=== PATIENT | male | born 1980 | race Caucasian/White ===

== ENCOUNTER 2022-02-20 20:54 | Inpatient (IN) | payer BC, SELFPAY ==
--- NOTE | ~2022-02-20 | CT_ITS ---
EXAMINATION: CT ABDOMEN AND PELVIS WITH CONTRAST CLINICAL INFORMATION: Abdominal pain COMPARISON: None TECHNIQUE: Multidetector volumetric images were obtained from the superior aspect of the liver through the pubic symphysis following administration 85 mL of Omnipaque 350 intravenous contrast. Sagittal and coronal reformatted images were obtained on the technologist's workstation. Oral contrast: No This CT examination was performed using dose optimization techniques as appropriate, variously including the following: *Automated exposure control *Adjustment of mA and/or kV according to patient size (this includes techniques or standardized protocols for targeted exams where dose is matched to indication/reason for exam; i.e. extremities or head) *Use of iterative reconstruction technique DLP: 426 mGy-cm FINDINGS: LUNG BASES: Mild dependent atelectasis bilaterally. LIVER, GALLBLADDER, AND BILIARY TREE: The liver is normal in size, shape, and attenuation. No focal hepatic lesion or significant biliary ductal dilatation is present. Status post cholecystectomy. PANCREAS: Unremarkable. SPLEEN: Unremarkable. ADRENAL GLANDS: Unremarkable. KIDNEYS AND URETERS: The kidneys are normal in size, shape, and attenuation. No hydronephrosis, hydroureter, or calculi seen. No perinephric stranding. BLADDER: Mildly distended with a thick-walled appearance, likely secondary to adjacent colonic inflammation described below. GASTROINTESTINAL TRACT: No evidence of bowel obstruction. There is a short segment of wall thickening and surrounding inflammation in the proximal to mid sigmoid colon in the setting of diverticula, most suspicious for diverticulitis. Small amount of dependent pelvic free fluid is present. No discrete abscess or free air identified. Appendix appears mildly dilated in the right lower quadrant, though no surrounding inflammatory change is seen to strongly suggest appendicitis. ABDOMINAL WALL: No significant hernia is appreciated. LYMPH NODES: Normal. VASCULAR: Unremarkable. PELVIC VISCERA: Unremarkable. OSSEOUS STRUCTURES: Unremarkable. CT/CT abdomen pelvis w IV con IMPRESSION: 1. Diverticulitis of the proximal to mid sigmoid colon. Small amount of dependent pelvic free fluid. No discrete abscess identified. Correlation with recent or followup colonoscopy is advised to exclude an underlying mass lesion. 2. Thick-walled appearance of the urinary bladder, likely secondary to adjacent colonic inflammation. 3. Mildly dilated appendix, though without surrounding inflammatory change to strongly suggest appendicitis.
[2022-02-20 21:19] VITALS: BP 106/75; PULSE 106; RESP 16; TEMP 37.4; O2SAT 97; BMI 22.4
[2022-02-20 21:31] LABS: MANUAL DIFF FLAG NO
[2022-02-20 21:33] LABS: Basophils Absolute Auto 0.1 X10*3/uL (0.0-0.2); Basophils Percent Auto 0.6 % (0-2); Eosinophils Absolute Auto 0.2 X10*3/uL (0.0-0.4); Hematocrit 41.2 % (42.0-52.0); Hemoglobin 13.8 g/dl (14.0-18.0); Imm Gran Abs Auto 0.05 X10*3/uL (0.00-0.03); Imm Gran Pct Auto 0.3 % (0.0-0.4); Lymphocytes Absolute Auto 2.5 X10*3/uL (1.2-4.9); Lymphocytes Percent Auto 15.6 % (20-40); Mean Corpuscular HGB Conc 33.5 g/dl (31.0-36.0); Mean Corpuscular Hemoglobin 31.7 pg (27.0-33.0); Mean Corpuscular Volume 94.7 fL (80.0-98.0); Monocytes Absolute Auto 1.5 X10*3/uL (0.1-1.2); Neutrophils Percent Auto 73.5 % (45-73); Platelet Count 349 X10*3/uL (160-400); Red Blood Count 4.35 X10*6/uL (4.60-5.80); Red Cell Distribution Width 13.6 % (11.0-16.0); White Blood Count 16.2 X10*3/uL (4.8-10.8)
[2022-02-20 21:46] LABS: Anion Gap 15 (12-20); Blood Urea Nitrogen 13 mg/dL (9-16); Calcium 9.7 mg/dL (8.4-10.2); Carbon Dioxide 23 mmol/L (22-29); Chloride 106 mmol/L (96-108); Creatinine Clr Calc Pharmacy 122.9; Estimated Glomerular Filt Rate > 60; Glucose Random 105 mg/dL (60-115); Sodium 140 mmol/L (135-145)
[2022-02-21] VITALS (9 sets, daily range): BP systolic 102–141; BP diastolic 61–85; PULSE 58–86; RESP 14–20; TEMP 36–36.8; O2SAT 97–99; BMI 21.4
--- NOTE | 2022-02-21 00:45 | ED.ABDPAIN ---
HPI - Abdominal Pain General Chief Complaint: Abdominal Pain Stated Complaint: Abd pain Time Seen by Provider: 02/21/22 00:29 Source: patient Mode of arrival: ambulatory Limitations: no limitations History of Present Illness HPI narrative: 41-year-old male with history of diverticulitis presents to the emergency department with complaints lower abd pain w/ radiation to bilateral flank pain since 19:00 tonight. Patient reports the pain came on suddenly, comes and goes in waves. Patient reports this pain feels similar to a diverticulitis flare however normally the pain is localized to the left lower quadrant only. HX of cholecystectomy. No history of bowel obstruction. Patient still has his appendix. Patient tolerating p.o. without difficulty, reports anorexia however.. Patient rates his current pain as a 9/10 and has not taken anything for his pain tonight. Patient reports subjective fevers & chills. Denies chest pain, shortness of breath, headaches, dizziness, nausea, vomiting, diarrhea, constipation, weakness, changes in bowel habits, urinary symptoms. Related Data Allergies Allergy/AdvReac Type Severity Reaction Status Date / Time Unable to Assess Allergy Unverified 02/21/22 00:29 Review of Systems Review of Systems Constitutional : No Weight loss, No Fever, No Chills, No Fatigue, No Malaise Eyes: No Eye Pain, No Swelling, No Redness Cardiovascular : No Chest Pain, No SOB, No Dyspnea on Exertion, No Orthopnea, No Edema, No Palpitations Respiratory : No Cough, No Sputum, No Wheezing Gastrointestinal : No Nausea, No Vomiting, No Diarrhea, No Constipation, + abdominal Pain, No Hematochezia, No Melena Genitourinary : No Dysuria, No Urinary Frequency, No Hematuria, Musculoskeletal : No joint pain, No Myalgias, No Joint Swelling Skin : No Skin Lesions, No rash Neuro : No Weakness, No Numbness, No Dizziness, No Headache Psych : No Anxiety/Panic, No Depression All other systems reviewed and are negative Yes all other systems are reviewed and are negative [facility] Past Medical History Attestation statement: The following information was validated with the patient. Source: old records reviewed Social History Social History Advance Directives: No Advance Directives Information Provided: Yes Physical Exam ED Vital Signs: Vital Signs - 24 hr 02/20/22 21:19 02/21/22 01:07 02/21/22 01:30 Temperature 99.4 F 98.3 F Pulse Rate 106 H 86 Respiratory Rate 16 18 16 Blood Pressure 106/75 141/85 H Pulse Oximetry 97 98 Oxygen Delivery Method Room Air Room Air BMI result Body Mass Index 22.4 vss Appearance: Alert.? Oriented X3.? No acute distress.? Head: Normocephalic, atraumatic, no step-offs or deformities Eyes: Pupils equal, round and reactive to light.? Neck: Normal inspection.? Neck supple.? CVS: Normal heart rate and rhythm.? Pulses normal.? Respiratory: No respiratory distress.? Breath sounds normal.? Abdomen: Soft, non distended, diffusely tender across lower abdomen R>L. Skin: Skin warm and dry.? Normal skin color.? Normal skin turgor.? Extremities: No lower extremity edema.? No calf ttp. 5/5 strength to bilateral upper and lower extremities Back: No midline tenderness, no C-spine tenderness, full range of motion, No CVA tenderness bilaterally Neuro: Oriented X 3.? No motor deficit.? No sensory deficit. CN 2-12 intact Course Reevaluation(s) Reevaluation #1: Patient noted to have leukocytosis of 16.2, also noted to have a normocytic anemia, chemistry with no acute electrolyte abnormalities requiring intervention. Transaminases normal. Lactic acid within normal limits. Urine clean. Although patient's white blood cell count is elevated will wait to initiate antibiotics until source can be identified. Pending lipase and CT of the abdomen and pelvis. To note upon re-evaluation of patient he tells me he is feeling better even before pain meds were administered. Time: 01:42 Reevaluation #2: Now complaining of increasing pain. Reviewed CT scan results which are showing diverticulitis as well as an inflamed appendix. Patient's physical examination concerning for both. Will reach out to surgery for input. At this time metronidazole, levofloxacin have been ordered. Time: 02:50 Reevaluation #3: Dr. Hammer general surgeon will admit patient to hospital for further evaluation and treatment if necessary. At this time I told patient to not eat or drink. Will be NPO. Will continue to monitor. I did discuss plan with patient. Answered all questions. At this time I feel comfortable. Time: 02:58 MDM - Abdominal Pain MDM Narrative Medical decision making narrative: [id number] 41-year-old male presents the emergency department complaining of bilateral flank pain since 19:00 tonight. Physical exam reveals normal rate and rhythm, lungs clear to auscultation bilaterally. Abdomen soft, nondistended, diffusely tender across lower abdomenR>L No CVA tenderness bilaterally. Plan at this time is to obtain basic labs, imaging, urine sample. Unlikely acute abdomen, nephrolithiasis, pancreatitis, bowel obstruction however will rule out. Suspected diverticulitis, appendicitis. Will rule out pylo. No radiation and testicles, unlikely testicular torsion. Medical Records Attestation: I reviewed the patient's medical records. Lab Data Attestation: I reviewed the patient's lab results. Result diagrams: 02/20/22 21:02/20/22: Labs: Lab Results 02/20/22 02/20/22 02/21/22 Range/Units : 21: 00:58 WBC 16.2 H (4.8-10.8) X10*3/uL RBC 4.35 L (4.60-5.80) X10*6/uL Hgb 13.8 L (14.0-18.0) g/dl Hct 41.2 L (42.0-52.0) % MCV 94.7 (80.0-98.0) fL MCH 31.7 (27.0-33.0) pg MCHC 33.5 (31.0-36.0) g/dl RDW 13.6 (11.0-16.0) % Plt Count 349 (160-400) X10*3/uL MPV 9.0 L (9.4-12.4) fL Immature Gran % (Auto) 0.3 (0.0-0.4) % Neut % (Auto) 73.5 H (45-73) % Lymph % (Auto) 15.6 L (20-40) % [place] % (Auto) 9.0 (2-11) % Eos % (Auto) 1.0 (0-4) % Baso % (Auto) 0.6 (0-2) % Lymph # (Auto) 2.5 (1.2-4.9) X10*3/uL [place] # (Auto) 1.5 H (0.1-1.2) X10*3/uL Eos # (Auto) 0.2 (0.0-0.4) X10*3/uL Baso # (Auto) 0.1 (0.0-0.2) X10*3/uL Abs Immat Gran (auto) 0.05 H (0.00-0.03) X10*3/uL Absolute Neuts (auto) 12.0 H (2.0-8.3) x10*3/uL Absolute Nucleated RBC 0.000 (0.0-0.012) X10*3/uL Nucleated RBC % (auto) 0.0 (0.0-0.2) /100WBC Sodium 140 (135-145) mmol/L Potassium 4.0 (3.3-5.1) mmol/L Chloride 106 (96-108) mmol/L Carbon Dioxide 23 (22-29) mmol/L Anion Gap 15 (12-20) BUN 13 (9-16) mg/dL Creatinine 0.82 (0.5-1.4) mg/dL Estim Creat Clear Calc 122.9 Estimated GFR > 60 Random Glucose 105 (60-115) mg/dL Lactic Acid 0.9 (0.5-2.0) mmol/L Calcium 9.7 (8.4-10.2) mg/dL Total Bilirubin 0.2 (0.0-1.0) mg/dL Direct Bilirubin 0.2 (0.0-0.5) mg/dL AST 15 (5-37) U/L ALT 18 (0-40) U/L Alkaline Phosphatase 78 (39-117) U/L Total Protein 7.1 (6.5-8.0) g/dL Albumin 4.2 (3.5-5.0) g/dL Lipase 35 (8-78) U/L Urine Color Urine Appearance Urine pH (5.0-9.0) Ur Specific [place] (1.005-1.025) Urine Protein (Neg-Trace) mg/dL Urine Glucose (UA) (Negative) mg/dL Urine Ketones (Negative) mg/dL Urine Blood (Negative) Urine Nitrite (Negative) Ur Leukocyte Esterase (Negative) 02/21/22 Range/Units 00:58 WBC (4.8-10.8) X10*3/uL RBC (4.60-5.80) X10*6/uL Hgb (14.0-18.0) g/dl Hct (42.0-52.0) % MCV (80.0-98.0) fL MCH (27.0-33.0) pg MCHC (31.0-36.0) g/dl RDW (11.0-16.0) % Plt Count (160-400) X10*3/uL MPV (9.4-12.4) fL Immature Gran % (Auto) (0.0-0.4) % Neut % (Auto) (45-73) % Lymph % (Auto) (20-40) % [place] % (Auto) (2-11) % Eos % (Auto) (0-4) % Baso % (Auto) (0-2) % Lymph # (Auto) (1.2-4.9) X10*3/uL [place] # (Auto) (0.1-1.2) X10*3/uL Eos # (Auto) (0.0-0.4) X10*3/uL Baso # (Auto) (0.0-0.2) X10*3/uL Abs Immat Gran (auto) (0.00-0.03) X10*3/uL Absolute Neuts (auto) (2.0-8.3) x10*3/uL Absolute Nucleated RBC (0.0-0.012) X10*3/uL Nucleated RBC % (auto) (0.0-0.2) /100WBC Sodium (135-145) mmol/L Potassium (3.3-5.1) mmol/L Chloride (96-108) mmol/L Carbon Dioxide (22-29) mmol/L Anion Gap (12-20) BUN (9-16) mg/dL Creatinine (0.5-1.4) mg/dL Estim Creat Clear Calc Estimated GFR Random Glucose (60-115) mg/dL Lactic Acid (0.5-2.0) mmol/L Calcium (8.4-10.2) mg/dL Total Bilirubin (0.0-1.0) mg/dL Direct Bilirubin (0.0-0.5) mg/dL AST (5-37) U/L ALT (0-40) U/L Alkaline Phosphatase (39-117) U/L Total Protein (6.5-8.0) g/dL Albumin (3.5-5.0) g/dL Lipase (8-78) U/L Urine Color Yellow Urine Appearance Clear Urine pH 6.5 (5.0-9.0) Ur Specific [place] 1.025 (1.005-1.025) Urine Protein Negative (Neg-Trace) mg/dL Urine Glucose (UA) Negative (Negative) mg/dL Urine Ketones Trace (Negative) mg/dL Urine Blood Negative (Negative) Urine Nitrite Negative (Negative) Ur Leukocyte Esterase Negative (Negative) Critical Care Time Critical Care Time Critical Care Time: Yes Total Critical Care Time: 35 Attestation: I attest to this time spent taking care of the patient, obtaining history, physical, reviewing labs, imaging, speaking to my attending, speaking to specialist. Discharge Plan Discharge Clinical Impression: Abdominal pain, Diverticulitis Patient Disposition: Admitted As Inpatient Instructions: Abdominal Pain (ED) Additional Instructions: Take your medications as prescribed. If you were prescribed antibiotics today, it is important that you take your medication to their entirety, do not skip any doses, do not finish them early. Follow-up with your primary care provider this week. Follow-up with the GI team for further evaluation and treatment if symptoms persist. Return to the emergency department with new or worsening symptoms. Such as fevers, chills, chest pain, shortness of breath, nausea, vomiting, dizziness, headache, vision changes, lethargy In case of emergency call 911 You can take ibuprofen every 6 hours, Tylenol every 4 as needed for pain or discomfort. Referrals: [facility] [Provider Group] - 1 week Physician,Unknown J [Primary Care Provider] - 2 days Stand Alone Forms: Work/School Release
[2022-02-21 01:06] LABS: Alanine Aminotransferase 18 U/L (0-40); Albumin Level 4.2 g/dL (3.5-5.0); Alkaline Phosphatase 78 U/L (39-117); Aspartate Amino Transferase 15 U/L (5-37); Bilirubin Direct 0.2 mg/dL (0.0-0.5); Bilirubin Total 0.2 mg/dL (0.0-1.0); Total Protein 7.1 g/dL (6.5-8.0)
[2022-02-21 01:10] LABS: Appearance Urine Clear; Color Urine Yellow; Glucose Urine UA Negative (Negative); Leukocyte Esterase Urine Negative (Negative); Nitrite Urine Negative (Negative); PH 6.5 (5.0-9.0); Specific Gravity - Urine 1.025 (1.005-1.025); Urine Blood Negative (Negative); Urine Ketones Trace mg/dL (Negative); Urine Protein Negative (Neg-Trace)
[2022-02-21 01:16] LABS: Lactic Acid 0.9 mmol/L (0.5-2.0)
[2022-02-21] MEDS: Morphine Sulfate 4 MG/ML CARTRIDGE IVPUSH (01:30)
[2022-02-21] MEDS: Ketorolac Tromethamine 15 MG/ML VIAL 30 MG IVPUSH (01:30)
[2022-02-21 02:00] LABS: Lipase 35 U/L (8-78)
[2022-02-21] MEDS: iohexoL 350 MG/ML 100 ML INFUS..BTL 85 ML IV (02:07)
[2022-02-21] MEDS: metroNIDAZOLE/NS 500 MG/100 ML PIGGYBACK 100 MG IV (03:38)
--- NOTE | 2022-02-21 03:55 | PC.NURSE ---
Pt antibiotic are still running. will continue to monitor.
[2022-02-21 04:10] LABS: COVID-19 Test Negative (Negative)
[2022-02-21 04:14] LABS: Anion Gap 15 (12-20); Blood Urea Nitrogen 13 mg/dL (9-16); Calcium 9.4 mg/dL (8.4-10.2); Carbon Dioxide 25 mmol/L (22-29); Chloride 103 mmol/L (96-108); Creatinine Clr Calc Pharmacy 122.9; Estimated Glomerular Filt Rate > 60; Glucose Random 111 mg/dL (60-115); Potassium 4.5 mmol/L (3.3-5.1); Sodium 138 mmol/L (135-145)
[2022-02-21] MEDS: ondansetron HCL 4 MG/2 ML VIAL IVPUSH (04:38)
[2022-02-21] MEDS: HYDROmorphone HCl 0.5 MG/0.5 ML SYRINGE IVPUSH ×2 (04:38→07:41)
[2022-02-21] MEDS: levoFLOXacin/D5W 750 MG/150 ML PIGGYBACK 100 MG IV (04:50)
[2022-02-21] MEDS: Dextrose 5 % and Lactated Ring 1,000 ML 125 ML IVCONT ×3 (05:08→21:27)
[2022-02-21] MEDS: Piperacillin Sodium/Tazobactam 3.375 GM in 0.9 % Sodium Chloride 50 ML IV ×4 (06:20→23:14)
--- NOTE | 2022-02-21 07:52 | PHA.MEDREC ---
Pharmacy Consult ? Medication Reconciliation Pharmacy has completed the medication reconciliation. SPOKE WITH PATIENT IN THE ED
--- NOTE | 2022-02-21 09:29 | PM.HPGS ---
History of Present Illness History of Present Illness Date of Service: 02/21/22 <Ericka Aburto PA-C - Last Filed: 02/21/22 10:13> 02/21/22 <Agustin Hammer MD - Last Filed: 02/21/22 13:07> Chief complaint: sigmoid diverticulitis <Ericka Aburto PA-C - Last Filed: 02/21/22 10:13> Narrative: Zane Santoyo is a 41 year old male who presented to the ED with complaints of abdominal pain. He reports he developed the pain last evening around 5pm. It started in the LLQ but has spread to the right site as well. It was first intermittent and waxed and waned but became sharp and stabbing in nature. It worsened in severity and he therefore sought evaluation in the ED. The pain was associated with subjective fevers. He denies nausea or vomiting. He reports diarrhea which is chronic. He reports he had his first episode of diverticulitis over year ago which he was admitted for and treated with IV abx. He also reports an episode about a month ago which was treated with PO antibiotics. The pain resolved. He also underwent a colonoscopy 2 weeks ago which only showed internal hemorrhoids. In the ED, work up included a CT scan of the abd/pelvis which showed wall thickening and surrounding inflammation of the proximal to mid sigmoid colon. He also had a leukocytosis of 16.2. <Ericka Aburto PA-C - Last Filed: 02/21/22 10:13> Review of Systems Constitutional: Constitutional: Denies chills, Reports fever(s), Denies malaise and Denies weight loss <Ericka Aburto PA-C - Last Filed: 02/21/22 10:13> ENT: Denies dizziness <BERNADETTE Morales Last Filed: 02/21/22 10:13> Cardiovascular: Cardiovascular: Denies chest pain, Denies palpitations and Denies dyspnea <BERNADETTE Morales Last Filed: 02/21/22 10:13> Respiratory: Respiratory: Denies cough and Denies dyspnea <Ericka Aburto PA-C - Last Filed: 02/21/22 10:13> Gastrointestinal: Gastrointestinal: Reports as per HPI, Denies change in bowel habits, Denies constipation, Denies nausea and Denies vomiting <Ericka Aburto PA-C - Last Filed: 02/21/22 10:13> Genitourinary: Genitourinary: Denies hematuria and Denies dysuria <Ericka Aburto PA-C - Last Filed: 02/21/22 10:13> Integumentary/Breasts: Skin/Breast: Denies rash <Ericka Aburto PA-C - Last Filed: 02/21/22 10:13> Neurologic: Denies dizziness <Ericka Aburto PA-C - Last Filed: 02/21/22 10:13> Endocrine: Endocrine: Denies palpitations <Ericka Aburto PA-C - Last Filed: 02/21/22 10:13> [facility] Surgical History Surgical History: Surgical History (Updated 02/21/22 @ 09:32 by Ericka Aburto PA-C) Hx laparoscopic cholecystectomy <Ericka Aburto PA-C - Last Filed: 02/21/22 10:13> Social History Social History: Social History Advance Directives: No Advance Directives Information Provided: Yes <BERNADETTE Morales Last Filed: 02/21/22 10:13> Meds Allergies/Adverse reactions: Allergies Allergy/AdvReac Type Severity Reaction Status Date / Time No Known Allergies Allergy Verified 02/21/22 07:42 <BERNADETTE Morales Last Filed: 02/21/22 10:13> Active Medications: Current Medications Acetaminophen (Acetaminophen 325 Mg Tablet) 650 mg PO QID PRN PRN Reason: headache, temp > 101 Hydromorphone HCl (Hydromorphone Hcl 0.5 Mg/0.5 Ml Syringe) 0.5 mg IVPUSH Q3H PRN; Protocol PRN Reason: Pain, Severe (Pain Scale 7-10) Last Admin: 02/21/22 07:41 Dose: 0.5 mg Dextrose/Lactated Ringer's (D5lr) 1,000 mls @ 125 mls/hr IVCONT .Q8H AILYN Last Admin: 02/21/22 05:08 Dose: 125 mls/hr Piperacillin Sod/Tazobactam (Sod 3.375 gm/ Sodium Chloride) 50 mls @ 100 mls/hr IV Q6H AILYN Ondansetron HCl (Ondansetron Hcl 4 Mg/2 Ml Vial) 4 mg IVPUSH QID PRN PRN Reason: Nausea Last Admin: 02/21/22 04:38 Dose: 4 mg Oxycodone HCl (Oxycodone Hcl Immed Release 5 Mg Tablet) 5 mg PO Q6H PRN PRN Reason: Pain, Severe (Pain Scale 7-10) Pharmacy Consult (Consult Rx Perform Med Rec) 1 each MISCELLANE ONCE PRN PRN Reason: Consult order Sodium Chloride (0.9 % Sodium Chloride Flush 3 Ml Syringe) 3 ml IVFLUSH QSHIFT AILYN Last Admin: 02/21/22 06:55 Dose: Not Given Zolpidem Tartrate (Zolpidem Tartrate 5 Mg Tablet) 5 mg PO BEDTIME PRN PRN Reason: Insomnia <BERNADETTE Morales Last Filed: 02/21/22 10:13> Home medications: Home Medications Medication Instructions Recorded Confirmed Last Taken Type inulin 2 gram chewable tablet 4 g PO DAILY 02/21/22 02/21/22 02/20/22 History (Fiber Gummies) <BERNADETTE Morales Last Filed: 02/21/22 10:13> Physical Exam Vital Signs: Vital Signs: Last Vital Signs Temp 97.8 F 02/21/22 03:42 Pulse 69 02/21/22 07:40 Resp 16 02/21/22 07:40 BP 116/72 02/21/22 07:40 Pulse Ox 97 02/21/22 03:42 O2 Del Method 02/21/22 03:42 BMI result Body Mass Index 22.4 <BERNADETTE Morales Last Filed: 02/21/22 10:13> Const: General: comfortable, no acute distress and alert <BERNADETTE Morales Last Filed: 02/21/22 10:13> Orientation/consciousness: patient oriented x3 <BERNADETTE Morales Last Filed: 02/21/22 10:13> Resp: Effort & Inspection: normal respiratory effort <Ericka Aburto PA-C - Last Filed: 02/21/22 10:13> Cardio: Rate: regular rate <Ericka Aliciadeau BERNADETTE Elizabeth Last Filed: 02/21/22 10:13> GI: Inspection: No distended <Ericka AliciadeauJULIUSAmando Elizabeth Last Filed: 02/21/22 10:13> Palpation (GI): Soft to palpation, Tenderness to palpation present (GI) in the LLQ (mild); with no rebound tenderness, no guarding and not rigid <Ericka Aliciadeau BERNADETTE Elizabeth Last Filed: 02/21/22 10:13> Percussion: Yes normal to percussion <Ericka AlmazanJULIUS justiceAmando Elizabeth Last Filed: 02/21/22 10:13> Skin: General skin exam: no rashes or lesions noted <Ericka Almazanreshma BERNADETTE Elizabeth Last Filed: 02/21/22 10:13> Neuro: General: patient oriented x3 and moves all extremities <Ericka AlmazanJULIUS justiceAmando Elizabeth Last Filed: 02/21/22 10:13> Extrem: General: Yes no clubbing, cyanosis or edema <Ericka Almazanreshma BERNADETTE Elizabeth Last Filed: 02/21/22 10:13> Results Results Labs: Short CBC 02/20/22 Range/Units 21:27 WBC 16.2 H (4.8-10.8) X10*3/uL Hgb 13.8 L (14.0-18.0) g/dl Hct 41.2 L (42.0-52.0) % Plt Count 349 (160-400) X10*3/uL BMP 02/20/22 02/21/22 21:27 03:44 Sodium 140 138 Potassium 4.0 4.5 Chloride 106 103 Carbon Dioxide 23 25 BUN 13 13 Creatinine 0.82 0.82 Calcium 9.7 9.4 Liver Function 02/20/22 Range/Units 21:27 Total Bilirubin 0.2 (0.0-1.0) mg/dL Direct Bilirubin 0.2 (0.0-0.5) mg/dL AST 15 (5-37) U/L ALT 18 (0-40) U/L Alkaline Phosphatase 78 (39-117) U/L Albumin 4.2 (3.5-5.0) g/dL Urine 02/21/22 Range/Units 00:58 Urine Color Yellow Urine Appearance Clear Urine pH 6.5 (5.0-9.0) Ur Specific [place] 1.025 (1.005-1.025) Urine Protein Negative (Neg-Trace) mg/dL Urine Glucose (UA) Negative (Negative) mg/dL <Ericka Aburto PA-C - Last Filed: 02/21/22 10:13> Additional studies: CT scan abd/pelvis- No evidence of bowel obstruction. There is a short segment of wall thickening and surrounding inflammation in the proximal to mid sigmoid colon in the setting of diverticula, most suspicious for diverticulitis. Small amount of dependent pelvic free fluid is present. No discrete abscess or free air identified. Appendix appears mildly dilated in the right lower quadrant, though no surrounding inflammatory change is seen to strongly suggest appendicitis. <BERNADETTE Morales Last Filed: 02/21/22 10:13> Assessment and Plan (1) Diverticulitis: Status: Acute <Ericka Aburto PA-C - Last Filed: 02/21/22 10:13> 41 year old male who presented with LLQ abd pain with a leukocytosis and CT scan showing wall thickening of the sigmoid with surrounding inflammatory changes without abscess or free air, consistent with diverticulitis. The appendix is slightly dilated on CT scan but there are no surrounding inflammatory changes and he is nontender in the RLQ. He was admitted to the surgical service for further treatment. He is non toxic appearing with a relatively benign abdomen without any peritoneal signs. Will continue IV abx and bowel rest for now. Will repeat CBC in am. Will advance diet if leukocytosis and abdominal pain improved. Patient expressed understanding and agrees with the plan. <BERNADETTE Morales Last Filed: 02/21/22 10:13> 41 year old male who presented with LLQ abd pain with a leukocytosis and CT scan showing wall thickening of the sigmoid with surrounding inflammatory changes without abscess or free air, consistent with diverticulitis. The appendix is slightly dilated on CT scan but there are no surrounding inflammatory changes and he is nontender in the RLQ. He was admitted to the surgical service for further treatment. He is non toxic appearing with a relatively benign abdomen without any peritoneal signs. Will continue IV abx and bowel rest for now. Will repeat CBC in am. Will advance diet if leukocytosis and abdominal pain improved. Patient expressed understanding and agrees with the plan. 41-year-old male patient with a prior history of diverticulitis several months ago, status post colonoscopy which was normal except for diverticulum, now with recurrent episode of diverticulitis uncomplicated. Patient is found to have a mildly elevated WBC and CT revealing thickened sigmoid colon with diverticula without abscess. On examination he is tender mainly in the left lower quadrant without rebound, guarding or rigidity. Findings are consistent with acute sigmoid diverticulitis. Agree with the above assessment and plan. Will continue IV antibiotics and recheck CBC in a.m.. <Agustin Hammer MD - Last Filed: 02/21/22 13:07> Quality Stroke Does the patient have a stroke diagnosis?: No <Ericka Aburto PA-C - Last Filed: 02/21/22 10:13> VTE Prior VTE?: No <Ericka Aburto PA-C - Last Filed: 02/21/22 10:13> VTE Risk Level:: Surgical - low <Ericka Aburto PA-C - Last Filed: 02/21/22 10:13> VTE Device Contraindication: N/A - Device Ordered <Ericka Aburto PA-C - Last Filed: 02/21/22 10:13> VTE Drug Contraindication: Treatment Not Indicated <Ericka Aburto PA-C - Last Filed: 02/21/22 10:13> Procedures Date of Service Date of Service: 02/21/22 <Ericka Aburto PA-C - Last Filed: 02/21/22 10:13>
--- NOTE | 2022-02-21 11:38 | MHC.CM.PN ---
Attempted to meet with patient in regards to discharge planning. Patient currently sleeping. No family present. Will attempt to meet again. Continue to monitor for d/c needs.
[2022-02-21] MEDS: oxyCODONE HCl Immed Release 5 MG TABLET PO ×2 (12:50→21:35)
--- NOTE | 2022-02-21 20:08 | PC.NURSE ---
Pt. has a bed on [facility], bed 368-1. RN was unavailable, but will call back.
[2022-02-21] MEDS: 0.9 % Sodium Chloride Flush 3 ML SYRINGE IVFLUSH (23:14)
[2022-02-22 03:19] VITALS: BP 122/70; PULSE 84; RESP 14; TEMP 36; O2SAT 98
[2022-02-22] MEDS: Piperacillin Sodium/Tazobactam 3.375 GM in 0.9 % Sodium Chloride 50 ML IV ×2 (05:09→11:30)
[2022-02-22] MEDS: Dextrose 5 % and Lactated Ring 1,000 ML 125 ML IVCONT ×2 (05:13→11:30)
[2022-02-22 07:00] LABS: MANUAL DIFF FLAG NO
[2022-02-22 07:04] LABS: Basophils Absolute Auto 0.1 X10*3/uL (0.0-0.2); Eosinophils Absolute Auto 0.3 X10*3/uL (0.0-0.4); Eosinophils Percent Auto 3.9 % (0-4); Hematocrit 37.6 % (42.0-52.0); Hemoglobin 12.4 g/dl (14.0-18.0); Imm Gran Abs Auto 0.02 X10*3/uL (0.00-0.03); Imm Gran Pct Auto 0.3 % (0.0-0.4); Lymphocytes Absolute Auto 2.1 X10*3/uL (1.2-4.9); Mean Corpuscular Hemoglobin 32.1 pg (27.0-33.0); Mean Corpuscular Volume 97.4 fL (80.0-98.0); Mean Platelet Volume 9.7 fL (9.4-12.4); Monocytes Absolute Auto 1.1 X10*3/uL (0.1-1.2); Monocytes Percent Auto 13.2 % (2-11); Neutrophils Absolute Auto 4.4 x10*3/uL (2.0-8.3); Neutrophils Percent Auto 55.6 % (45-73); Platelet Count 315 X10*3/uL (160-400); Red Blood Count 3.86 X10*6/uL (4.60-5.80); White Blood Count 7.9 X10*3/uL (4.8-10.8)
[2022-02-22 07:28] VITALS: BP 118/70; PULSE 65; RESP 15; TEMP 36.6; O2SAT 98
--- NOTE | 2022-02-22 08:03 | P.PNGS_ITS ---
Subjective Subjective Date of Service: 02/22/22 Interval history: Feels much better this morning. He denies any abdominal pain, nausea or vomiting. He is passing flatus and had a BM last night. Wants to eat food. Physical Exam Vital Signs: Vital Signs: Last Vital Signs Temp 97.8 F 02/22/22 07:28 Pulse 65 02/22/22 07:28 Resp 15 02/22/22 07:28 BP 118/70 02/22/22 07:28 Pulse Ox 98 02/22/22 07:28 O2 Del Method 02/22/22 07:28 BMI result Body Mass Index 21.4 Const: General: comfortable, no acute distress and alert Orientation/consciousness: patient oriented x3 Resp: Effort & Inspection: normal respiratory effort GI: Inspection: No distended Palpation (GI): Soft to palpation, Tenderness to palpation present (GI) (very mild LLQ to deep palpation) with no rebound tenderness, no guarding and not rigid Percussion: Yes normal to percussion Skin: General skin exam: no rashes or lesions noted Neuro: General: patient oriented x3 Extrem: General: Yes no clubbing, cyanosis or edema Objective Data Active Medications Acetaminophen (Acetaminophen 325 Mg Tablet) 650 mg PO QID PRN PRN Reason: headache, temp > 101 Hydromorphone HCl (Hydromorphone Hcl 0.5 Mg/0.5 Ml Syringe) 0.5 mg IVPUSH Q3H PRN; Protocol PRN Reason: Pain, Severe (Pain Scale 7-10) Last Admin: 02/21/22 07:41 Dose: 0.5 mg Documented By: YAMINI Dextrose/Lactated Ringer's (D5lr) 1,000 mls @ 125 mls/hr IVCONT .Q8H [facility] Last Admin: 02/22/22 05:13 Dose: 125 mls/hr Documented By: CATINA Piperacillin Sod/Tazobactam (Sod 3.375 gm/ Sodium Chloride) 50 mls @ 100 mls/hr IV Q6H [facility] Last Infusion: 02/22/22 05:44 Dose: 0 mls/hr Documented By: CATINA Ondansetron HCl (Ondansetron Hcl 4 Mg/2 Ml Vial) 4 mg IVPUSH QID PRN PRN Reason: Nausea Last Admin: 02/21/22 04:38 Dose: 4 mg Documented By: JORDAN Oxycodone HCl (Oxycodone Hcl Immed Release 5 Mg Tablet) 5 mg PO Q6H PRN PRN Reason: Pain, Severe (Pain Scale 7-10) Last Admin: 02/21/22 21:35 Dose: 5 mg Documented By: CATINA Pharmacy Consult (Consult Rx Perform Med Rec) 1 each MISCELLANE ONCE PRN PRN Reason: Consult order Sodium Chloride (0.9 % Sodium Chloride Flush 3 Ml Syringe) [facility] Last Admin: 02/21/22 23:14 Dose: 3 ml Documented By: CATINA Zolpidem Tartrate (Zolpidem Tartrate 5 Mg Tablet) 5 mg PO BEDTIME PRN PRN Reason: Insomnia Labs CBC & Chem 7: 02/22/22 06:05 02/21/22 03:44 Labs: Laboratory Results - last 24 hr 02/22/22 06:05 MCV 97.4 MCH 32.1 MCHC 33.0 RDW 14.0 Plt Count 315 MPV 9.7 Immature Gran % (Auto) 0.3 Neut % (Auto) 55.6 Lymph % (Auto) 26.0 Edwards % (Auto) 13.2 H Eos % (Auto) 3.9 Baso % (Auto) 1.0 Lymph # (Auto) 2.1 Edwards # (Auto) 1.1 Eos # (Auto) 0.3 Baso # (Auto) 0.1 Abs Immat Gran (auto) 0.02 Absolute Neuts (auto) 4.4 Absolute Nucleated RBC 0.000 Nucleated RBC % (auto) 0.0 Microbiology Microbiology Results: Microbiology 02/21/22 00:58 Blood Culture - Preliminary Blood - Venous Prelim: GPC Gram Stain only 02/21/22 00:58 Blood Culture - Preliminary Blood - Venous No growth after 24 hours. Procedures Date of Service Date of Service: 02/22/22 Progress Note: A&P Assessment and plan (1) Diverticulitis: Status: Acute Plan 41 year old male with recurrent diverticulitis, uncomplicated. He is doing well with resolution of his symptoms and good GI function. VSS. His abdomen is very benign. Will advance to low residue diet. If tolerating, stable for dc to home t andrew on course of PO Augmentin. Will need to f/u with Dr. Hammer in office in 2 weeks to discuss possible sigmoid resection. Time Spent With Patient Time: Total time spent is greater than 50% in coordination of care (as documented) at patient's floor/unit and/or counseling patient: Quality Stroke Does the patient have a stroke diagnosis?: No VTE Prior VTE?: No VTE Risk Level:: Surgical - low VTE Device Contraindication: N/A - Device Ordered VTE Drug Contraindication: Treatment Not Indicated
[2022-02-22] MEDS: Acetaminophen 325 MG TABLET 650 MG PO (08:26)
--- NOTE | 2022-02-22 10:21 | MHC.CM.PN ---
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
[2022-02-22 11:00] VITALS: BP 119/62; PULSE 68; RESP 16; TEMP 36.2; O2SAT 99
--- NOTE | 2022-02-26 10:14 | PM.DS ---
DS: Providers Provider Date of Service: 02/22/22 Date of admission: 02/21/22 03:01 Primary care physician: Jannet Physician Attending physician on admission: Agustin Hammer Attending physician on discharge: Agustin Hammer DS: Diagnosis Discharge Diagnosis (1) Diverticulitis: Status: Acute DS: Summary Hospital Course Hospital Course: BRIEF HPI: Zane Santoyo is a 41 year old male who presented to the ED with complaints of abdominal pain. He reports he developed the pain last evening around 5pm. It started in the LLQ but has spread to the right site as well. It was first intermittent and waxed and waned but became sharp and stabbing in nature. It worsened in severity and he therefore sought evaluation in the ED. The pain was associated with subjective fevers. He denies nausea or vomiting. He reports diarrhea which is chronic. He reports he had his first episode of diverticulitis over year ago which he was admitted for and treated with IV abx. He also reports an episode about a month ago which was treated with PO antibiotics. The pain resolved. He also underwent a colonoscopy 2 weeks ago which only showed internal hemorrhoids. In the ED, work up included a CT scan of the abd/pelvis which showed wall thickening and surrounding inflammation of the proximal to mid sigmoid colon. He also had a leukocytosis of 16.2. HOSPITAL COURSE: The patient was admitted to the surgical service for further treatment of the sigmoid diverticulitis. He was started on IV zosyn, IVF and kept NPO for bowel rest. He had an uncomplicated hospital course. The following day, he felt significantly improved with resolution of his abdominal pain. He felt hungry. He was passing flatus and moving his bowels. His abdominal exam was improved with only very mild LLQ tenderness. His diet was advanced to low residue. He was reassessed later that day and he was tolerating the solid diet without any symptoms. He felt well and ready for discharge. He was discharged to home on 02/22/22 in stable condition. He was discharged on a 10 day course of PO Augmentin. He is to follow up with Dr. Hammer in the office in 2 weeks to discuss possible elective sigmoid resection given his multiple recurrences. Status at Discharge Functional status at discharge: independent ambulation Overall status at discharge: patient is back to baseline Time Spent with Patient Time attestation: Total time spent providing and/or coordinating discharge services: Discharge coordination time: Greater than 30 minutes Quality: Safe Use of Opioids Does Pt have an Active Cancer Diagnosis on the Problem List?: No Quality: Stroke Does the patient have a stroke diagnosis?: No Physical Exam Vital Signs: Vital Signs: Last Vital Signs Temp 97.1 F 02/22/22 11:00 Pulse 68 02/22/22 11:00 Resp 16 02/22/22 11:00 BP 119/62 02/22/22 11:00 Pulse Ox 99 02/22/22 11:00 O2 Del Method 02/22/22 11:00 BMI result Body Mass Index 21.4 Const: General: comfortable, no acute distress and alert Orientation/consciousness: patient oriented x3 GI: Inspection: No distended Palpation (GI): Soft to palpation, nontender, no guarding and not rigid Neuro: General: patient oriented x3 Discharge Plan Discharge Anticipated Discharge Date/Time: 02/22/22 13:56 Patient Disposition: Home, Self-Care Discharge Diagnosis: acute sigmoid diverticulitis Referrals: [facility] [place] [facility] [Provider Group] - 1 week Agustin Hammer MD [Physician] - 2 Weeks Jannet Hawk [Primary Care Provider] - 2 days Discharge Medications: New amoxicillin-pot clavulanate [Augmentin] 500-125 mg tablet 1 tab PO BID Qty: 20 0RF Continued Fiber Gummies 2 gram Tablet,Chewable 4 g PO DAILY Discharge Orders: Discharge Order (Routine); Ordered 02/22/22 Ordered By: Ericka Aburto Diet: low residue diet Activity on Discharge: As tolerated Stand Alone Forms: Patient Portal Discharge page, Work/School Release Activity Restrictions/Additional Instructions: Call Your Doctor or Return to the ED if: ? ? -Your temperature exceeds 101.5? F? ? ? -You experience excessive pain or swelling ? ? -You have an unexpected reaction to medication ? ? -You experience continued vomiting/nausea Care Plan Goals: Resolution of diverticulitis Health Concerns: Diverticulitis Plan of Treatment: Nonoperative with bowel rest, IV abx and course of PO antibiotics at home F/u with Dr. Hammer in 2 weeks in office Assessment: Improved Patient Instructions: Abdominal Pain (ED) Discharge Date/Time: 02/22/22 15:50
== END 2022-02-22 15:50 | disposition home or self-care (01) | DRG 244 ==
LOC: HO.ED 02-21 02:59 → HO.EDOVER 02-21 03:19 → HO.S3 02-21 18:52
PROVIDERS: Physician Assistant; Admitting Provider Surgery; Emergency Provider Emergency Medicine Emergency Medical Services; PCP Physician Assistant; Visit Provider Surgery
DX: K57.32 Diverticulitis of large intestine without perforation or abscess without bleeding (principal); F17.290 Nicotine dependence, other tobacco product, uncomplicated; Z20.822 Contact with and (suspected) exposure to COVID-19; Z71.6 Tobacco abuse counseling
CPT/HCPCS: 36415; 74177; 80048; 80076; 81003; 83605; 83690; 85025; 87040; 87147; 87205; 87635; 99285; J1170; J1885; J1956; J2270; J2405; J2543; Q9967

== ENCOUNTER 2023-05-15 07:57 | Emergency (ER) | payer OTHER, SELFPAY ==
--- NOTE | ~2023-05-15 | CT_ITS ---
EXAMINATION: CT ABDOMEN AND PELVIS WITH CONTRAST CLINICAL INFORMATION: Pelvic pain and bulge COMPARISON: 02/21/2022 TECHNIQUE: Multidetector volumetric images were obtained from the superior aspect of the liver through the pubic symphysis following administration 85 mL of Omnipaque 350 intravenous contrast. Sagittal and coronal reformatted images were obtained on the technologist's workstation. Scanning performed with Valsalva maneuvers. Oral contrast: No This CT examination was performed using dose optimization techniques as appropriate, variously including the following: *Automated exposure control *Adjustment of mA and/or kV according to patient size (this includes techniques or standardized protocols for targeted exams where dose is matched to indication/reason for exam; i.e. extremities or head) *Use of iterative reconstruction technique DLP: 332 mGy-cm FINDINGS: LUNG BASES: Minor atelectasis at the lung bases. Dependent densities possibly due to hypoventilation. If there are pulmonary symptoms, a formal chest CT could be done. No pleural effusion. LIVER, GALLBLADDER, AND BILIARY TREE: The liver is normal in size, shape, and attenuation. No focal hepatic lesion or biliary ductal dilatation is present. The gallbladder is unremarkable with no evidence of radiopaque gallstones, gallbladder wall thickening, or obvious pericholecystic inflammatory changes. PANCREAS: Unremarkable. SPLEEN: Unremarkable. ADRENAL GLANDS: Unremarkable. KIDNEYS AND URETERS: The kidneys are normal in size, shape, and attenuation. No hydronephrosis, hydroureter, or calculi seen. No perinephric stranding. BLADDER: Unremarkable. GASTROINTESTINAL TRACT: Large stool burden within the rectum and colon but no bowel obstruction or right or left lower quadrant inflammatory change. Appendix normal. ABDOMINAL WALL: There are small fat-containing bilateral inguinal hernias. Bowel does not participate. The bladder appears to be extending towards the right hernia sac. The sigmoid appears to be extending towards the left inguinal sac however at the time of scanning, only fat is seen within the actual hernias. LYMPH NODES: Normal. VASCULAR: Unremarkable. PELVIC VISCERA: Unremarkable. OSSEOUS STRUCTURES: Unremarkable. CT/CT abdomen pelvis w IV con IMPRESSION: Bilateral fat-containing inguinal hernias. Fleischner guidelines were followed.
[2023-05-15 08:00] VITALS: BP 134/86; PULSE 99; RESP 18; TEMP 37.1; O2SAT 99; BMI 22.7
--- NOTE | 2023-05-15 08:13 | ED.GENADULT ---
HPI - General Adult General Chief complaint: General Medical Stated complaint: Referred by PCP - hernia ? Time Seen by Provider: 05/15/23 08:11 Source: patient Mode of arrival: ambulatory Limitations: no limitations History of Present Illness HPI narrative: 42 year old male hx of diverticulitis presenting w. L sided groin pain w/ painful lump that has been present for a few days worsening which prompted him to come in today. 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 Denies chest pain, shortness of breath, headaches, dizziness, nausea, vomiting, diarrhea, constipation, weakness, changes in bowel habits, urinary symptoms. Related Data Home Medications Medication Instructions Recorded Confirmed inulin 2 gram chewable tablet 4 g PO DAILY 02/21/22 02/28/22 (Fiber Gummies) Previous Rx's Medication Instructions Recorded amoxicillin 500 mg-potassium 1 tab PO BID #20 tabs 02/22/22 clavulanate 125 mg tablet (Augmentin) ketorolac 10 mg tablet 10 mg PO TID PRN pain 5 days #15 05/15/23 tabs Allergies Allergy/AdvReac Type Severity Reaction Status Date / Time No Known Allergies Allergy Verified 05/15/23 08:04 Review of Systems Review of Systems: Yes all other systems are reviewed and are negative PMFSH Past Medical History Attestation statement: The following information was validated with the patient. Source: old records reviewed and nursing notes reviewed Surgical History Hx laparoscopic cholecystectomy Family History Family History Mother Colon cancer Father Prostate CA Social History Social History Household Members: Family Housing: House Do you presently have visiting nurse or other home services: No Patient Tobacco Use Status: Current everyday Tobacco user Tobacco use type: Smokeless Tobacco Smoked in Last 30 Days: Yes e-Cigarette/Vaping Use: Currently Using Second Hand Smoke Exposure: No Use of substances other than those prescribed or required for medical reasons: No Substance Use Type: Marijuana Advance Directives: No Advance Directives Information Provided: Yes service: No Current occupational status: employed Physical Exam ED Vital Signs: Vital Signs - 24 hr 05/15/23 08:00 05/15/23 08:40 05/15/23 10:05 Temperature 98.7 F 97.9 F Pulse Rate 99 82 75 Respiratory Rate 18 16 16 Blood Pressure 134/86 146/91 H 119/84 Pulse Oximetry 99 98 97 Oxygen Delivery Method Room Air Room Air Room Air 05/15/23 10:33 Temperature Pulse Rate 78 Respiratory Rate 18 Blood Pressure 120/87 Pulse Oximetry 98 Oxygen Delivery Method Room Air BMI result Body Mass Index 22.7 vss Appearance: Alert.? Oriented X3.? No acute distress.? Head: Normocephalic, atraumatic, no step-offs or deformities Eyes: Pupils equal, round and reactive to light.? CVS: Normal heart rate and rhythm.? Pulses normal.? Respiratory: No respiratory distress.? Breath sounds normal.? Abdomen: Soft and nontender.? Skin: Skin warm and dry.? Normal skin color.? Normal skin turgor.? Extremities: No lower extremity edema.? No calf ttp. 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 direct Neuro: Oriented X 3.? No motor deficit.? No sensory deficit. CN 2-12 intact Course Reevaluation(s) Reevaluation #1: Patient's CBC no acute findings. Chemistry no acute findings requiring intervention. UA without infection. CT of the abdomen shows small fat containing bilateral inguinal hernias bowel does not participate. No signs of incarceration/strangulation. Patient's pain improved with Toradol no reporting nausea will give Zofran for nausea and vomiting. Plan at this time is general surgery follow-up. No need for emergent surgical management at this time. Will give him general surgery follow-up. Educated patient on diagnosis and treatment plan, answered all question, patient verbalizes understanding. At this time patient will be discharged home, advised to return with new or worsening symptoms. Educated on worrisome signs and symptoms and when to return. At this time I feel comfortable discharge home. Time: 10:36 Medications Administered Discontinued Medications Generic Name Dose Route Start Last Admin Trade Name Freq PRN Reason Stop Dose Admin Iohexol 85 ml 05/15/23 09:58 05/15/23 09:59 Iohexol 350 Mg/Ml 75 Ml Infus..Btl IV 05/15/23 09:59 85 ml ONCE ONE Administration Ketorolac Tromethamine 30 mg 05/15/23 08:36 05/15/23 09:00 Ketorolac Tromethamine 30 Mg/Ml Vial IVPUSH 05/15/23 08:37 30 mg ONCE ONE Administration Medical Decision Making Medical Decision Making [facility] Narrative: 42-year-old male presents with complaints of left-sided groin/lower abdominal pain that has been ongoing for the past few days worsening Physical exam w/ b/l small inguinal hernaias ? direct History and physical exam concerning for inguinal hernias. Unlikely torsion. Unlikely UTI, epididymitis, orchitis. Plan at this time labs, urine, imaging Differential Diagnosis Differential Diagnoses: The differential diagnosis associated with the presentation includes History and physical exam concerning for inguinal hernias. Unlikely torsion. Unlikely UTI, epididymitis, orchitis. Admission/Observation Consideration of admission/observation: Escalation of care including admission/observation considered Unlikely Lab Data [facility] Lab Attestation statement: I reviewed the patient's lab results. 05/15/23 08:39 05/15/23 08:40 Labs: Lab Results 05/15/23 05/15/23 Range/Units 08:39 08:40 WBC 7.4 (4.8-10.8) X10*3/uL RBC 4.49 L (4.60-5.80) X10*6/uL Hgb 14.6 (14.0-18.0) g/dl Hct 43.2 (42.0-52.0) % MCV 96.2 (80.0-98.0) fL MCH 32.5 (27.0-33.0) pg MCHC 33.8 (31.0-36.0) g/dl RDW 13.7 (11.0-16.0) % Plt Count 357 (160-400) X10*3/uL MPV 9.6 (9.4-12.4) fL Immature Gran % (Auto) 0.1 (0.0-0.4) % Neut % (Auto) 51.0 (45-73) % Lymph % (Auto) 33.4 (20-40) % Clarke % (Auto) 9.9 (2-11) % Eos % (Auto) 4.5 H (0-4) % Baso % (Auto) 1.1 (0-2) % Lymph # (Auto) 2.5 (1.2-4.9) X10*3/uL Clarke # (Auto) 0.7 (0.1-1.2) X10*3/uL Eos # (Auto) 0.3 (0.0-0.4) X10*3/uL Baso # (Auto) 0.1 (0.0-0.2) X10*3/uL Abs Immat Gran (auto) 0.01 (0.00-0.03) X10*3/uL Absolute Neuts (auto) 3.8 (2.0-8.3) x10*3/uL Absolute Nucleated RBC 0.000 (0.0-0.012) X10*3/uL Nucleated RBC % (auto) 0.0 (0.0-0.2) /100WBC Sodium 140 (135-145) mmol/L Potassium 3.6 (3.3-5.1) mmol/L Chloride 108 (96-108) mmol/L Carbon Dioxide 22 (22-29) mmol/L Anion Gap 14 (12-20) BUN 14 (9-16) mg/dL Creatinine 0.99 (0.5-1.4) mg/dL Estim Creat Clear Calc 102.2 Estimated GFR > 60 Random Glucose 108 (60-115) mg/dL Calcium 9.6 (8.4-10.2) mg/dL Total Bilirubin 0.4 (0.0-1.0) mg/dL AST 19 (5-37) U/L ALT 27 (0-40) U/L Alkaline Phosphatase 80 (39-117) U/L Total Protein 7.4 (6.5-8.0) g/dL Albumin 4.1 (3.5-5.0) g/dL Lipase 30 (8-78) U/L Urine Color Dark Yellow Urine Appearance Clear Urine pH 6.5 (5.0-9.0) Ur Specific Kent >= 1.030 H (1.005-1.025) Urine Protein Trace (Neg-Trace) mg/dL Urine Glucose (UA) Negative (Negative) mg/dL Urine Ketones Trace (Negative) mg/dL Urine Blood Negative (Negative) Urine Nitrite Negative (Negative) Ur Leukocyte Esterase Trace H (Negative) Urine RBC 0-2 (0-2) /HPF Urine WBC 0-5 (0-5) /HPF Ur Squamous Epith Cells 0-2 (0-2) /HPF Urine Bacteria None Seen (None Seen) Hyaline Casts 0-2 (0-2) /LPF Independent Interpretation I performed an independent interpretation of an: CT Scan (CT/CT abdomen pelvis w IV con IMPRESSION: Bilateral fat-containing inguinal hernias. Fleischner guidelines were followed.) Radiology Impression Discussion of test interpretation with radiology: I have reviewed the radiologist's reading. Critical Care Time Critical Care Time Critical Care Time: No Discharge Plan Discharge Clinical Impression: Inguinal hernia Patient Disposition: Home, Self-Care Instructions: Inguinal Hernia (ED) Additional Instructions: Take your medications as prescribed. If you were prescribed antibiotics today, it is important that you take your medication to their entirety, do not skip any doses, do not finish them early. Follow-up with your primary care provider this week. Return to the emergency department with new or worsening symptoms. Such as fevers, chills, chest pain, shortness of breath, nausea, vomiting, dizziness, headache, vision changes, lethargy In case of emergency call 911 Toradol has been sent to your pharmacy, you tolerated this well in the department. Please take this as prescribed do not take this with ibuprofen, or other NSAIDs, do not mix this with alcohol. Side effects of this medication including increased risk for bleeding and possible kidney injury. Follow-up with general surgery. CT results below. ABDOMINAL WALL: There are small fat-containing bilateral inguinal hernias. Bowel does not participate. The bladder appears to be extending towards the right hernia sac. The sigmoid appears to be extending towards the left inguinal sac however at the time of scanning, only fat is seen within the actual hernias. LYMPH NODES: Normal. VASCULAR: Unremarkable. PELVIC VISCERA: Unremarkable. OSSEOUS STRUCTURES: Unremarkable. CT/CT abdomen pelvis w IV con IMPRESSION: Bilateral fat-containing inguinal hernias. Fleischner guidelines were followed. Prescriptions: New ketorolac 10 mg tablet 10 mg PO TID PRN (Reason: pain) 5 Days Qty: 15 0RF No Action Fiber Gummies 2 gram Tablet,Chewable 4 g PO DAILY amoxicillin-pot clavulanate [Augmentin] 500-125 mg tablet 1 tab PO BID Qty: 20 0RF Referrals: [facility] [Provider Group] - 1 week Physician,Unknown J [Primary Care Provider] - 2 days Stand Alone Forms: Work/School Release
[2023-05-15 08:40] VITALS: BP 146/91; PULSE 82; RESP 16; TEMP 36.6; O2SAT 98
--- NOTE | 2023-05-15 08:45 | PC.NURSE ---
a&ox4. vss and up to date. pt presents to the ED w/ left sided groin pain/lump in affected area. pt verbalizes pain increases w/ movement while bending down/lifting heavy objects. pt states lump is tender to the touch. this RN did not palpate affected area. denies any other sx. verbalizes pain is a 7/10. no sob/wob noted. respirations even and unlabored. 20gIV placed in the left AC. labs/urine obtained and sent to lab. pt aware of plan of care going forward at this time. call ye placed within reach.
[2023-05-15 08:47] LABS: MANUAL DIFF FLAG NO
[2023-05-15 08:50] LABS: Appearance Urine Clear; Basophils Absolute Auto 0.1 X10*3/uL (0.0-0.2); Basophils Percent Auto 1.1 % (0-2); Color Urine Dark Yellow; Eosinophils Absolute Auto 0.3 X10*3/uL (0.0-0.4); Eosinophils Percent Auto 4.5 % (0-4); Glucose Urine UA Negative (Negative); Hematocrit 43.2 % (42.0-52.0); Hemoglobin 14.6 g/dl (14.0-18.0); Imm Gran Abs Auto 0.01 X10*3/uL (0.00-0.03); Imm Gran Pct Auto 0.1 % (0.0-0.4); Leukocyte Esterase Urine Trace (Negative); Lymphocytes Absolute Auto 2.5 X10*3/uL (1.2-4.9); Lymphocytes Percent Auto 33.4 % (20-40); Mean Corpuscular HGB Conc 33.8 g/dl (31.0-36.0); Mean Corpuscular Hemoglobin 32.5 pg (27.0-33.0); Mean Corpuscular Volume 96.2 fL (80.0-98.0); Mean Platelet Volume 9.6 fL (9.4-12.4); Monocytes Absolute Auto 0.7 X10*3/uL (0.1-1.2); Monocytes Percent Auto 9.9 % (2-11); Neutrophils Absolute Auto 3.8 x10*3/uL (2.0-8.3); Nitrite Urine Negative (Negative); PH 6.5 (5.0-9.0); Platelet Count 357 X10*3/uL (160-400); Red Blood Count 4.49 X10*6/uL (4.60-5.80); Red Cell Distribution Width 13.7 % (11.0-16.0); Specific Gravity - Urine >= 1.030 (1.005-1.025); UMIC TRIGGER UACC YES; Urine Blood Negative (Negative); Urine Ketones Trace mg/dL (Negative); Urine Protein Trace mg/dL (Neg-Trace); White Blood Count 7.4 X10*3/uL (4.8-10.8)
[2023-05-15 09:00] LABS: Bacteria Urine None Seen (None Seen); Hyaline Casts Urine 0-2 /LPF (0-2); RBC Urine 0-2 /HPF (0-2); Squamous Epithelial Cell Urine 0-2 /HPF (0-2); WBC Urine 0-5 /HPF (0-5)
[2023-05-15] MEDS: Ketorolac Tromethamine 30 MG/ML VIAL IVPUSH (09:00)
--- NOTE | 2023-05-15 09:00 | PC.NURSE ---
medication administered per provider order. pt waiting to go to CT a this time. family bedside. call ye placed within reach.
[2023-05-15 09:05] LABS: Alanine Aminotransferase 27 U/L (0-40); Albumin Level 4.1 g/dL (3.5-5.0); Alkaline Phosphatase 80 U/L (39-117); Anion Gap 14 (12-20); Aspartate Amino Transferase 19 U/L (5-37); Bilirubin Total 0.4 mg/dL (0.0-1.0); Blood Urea Nitrogen 14 mg/dL (9-16); Calcium 9.6 mg/dL (8.4-10.2); Carbon Dioxide 22 mmol/L (22-29); Chloride 108 mmol/L (96-108); Creatinine Clr Calc Pharmacy 102.2; Estimated Glomerular Filt Rate > 60; Glucose Random 108 mg/dL (60-115); Lipase 30 U/L (8-78); Potassium 3.6 mmol/L (3.3-5.1); Sodium 140 mmol/L (135-145); Total Protein 7.4 g/dL (6.5-8.0)
--- NOTE | 2023-05-15 09:40 | PC.NURSE ---
pt to CT at this time.
[2023-05-15] MEDS: iohexoL 350 MG/ML 75 ML INFUS..BTL 85 ML IV (09:59)
[2023-05-15 10:05] VITALS: BP 119/84; PULSE 75; RESP 16; O2SAT 97
--- NOTE | 2023-05-15 10:06 | PC.NURSE ---
pt returned from CT at this time. vss and up to date. pt verbalizing pain completely subsided post medication administration. resting comfortably in no apparent distress. respirations remain even and unlabored. waiting for CT results at this time. family bedside. call ye placed within reach.
[2023-05-15 10:33] VITALS: BP 120/87; PULSE 78; RESP 18; O2SAT 98
[2023-05-15] MEDS: ondansetron HCL 4 MG/2 ML VIAL IVPUSH (10:54)
== END 2023-05-15 11:17 | disposition home or self-care (01) ==
PROVIDERS: Physician Assistant; Emergency Provider Emergency Medicine
DX: K40.20 Bilateral inguinal hernia, without obstruction or gangrene, not specified as recurrent (principal); R10.2 Pelvic and perineal pain; F17.210 Nicotine dependence, cigarettes, uncomplicated; Z71.6 Tobacco abuse counseling; Z79.899 Other long term (current) drug therapy
CPT/HCPCS: 36415; 74177; 80053; 81001; 83690; 85025; 96374; 96375; 99284; J1885; J2405; Q9967

== ENCOUNTER 2023-05-20 14:10 | Outpatient (AMB) | payer OTHER, SELFPAY ==
--- NOTE | 2023-05-20 14:16 | A.OFFVIS_ITS ---
Intake Vital Signs 05/20/23 14:21 Height 6 ft Weight 171 lb 15.369 oz BMI 23.3 BP 120/80 Blood Pressure Location Rt brachial Position Sitting Pulse 80 Intake Visit Reasons: left inguinal hernia Intake Note: Patient referred for Lt inguinal hernia. CT abd pelvis on 05-15-23. Patient c/o: abdominal discomfort. Pain getting worse. 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 He has had several month history of symptomatic enlarging left inguinal hernia. His increasing size become more symptomatic. He wished to have it repaired. Patient does do strenuous activities at his place of employment. Otherwise he has tolerating a diet having regular bowel habits. Chart was reviewed and patient evaluated [facility] Surgical History (Updated 05/20/23 @ 14:44 by Patrick Vazquez MD) H/O vasectomy Hx laparoscopic cholecystectomy Family History Mother Colon cancer Father Prostate CA Social History (Updated 05/20/23 @ 14:20 by KAYE Graves) Household Members: Family Housing: House Do you presently have visiting nurse or other home services: No Patient Tobacco Use Status: Current everyday Tobacco user Tobacco use type: Cigarette and Smokeless Tobacco Cigarettes Per Day: 3 e-Cigarette/Vaping Use: Currently Using Second Hand Smoke Exposure: No Substance Use Type: Marijuana service: No Current occupational status: employed Physical Exam Vital Signs: Last Vital Signs Pulse 80 05/20/23 14:21 BP 120/80 05/20/23 14:21 BMI result Body Mass Index 23.3 Chest Other: Chest breath sounds bilaterally, HS 1 in 2 GI Other: Patient was examined standing. Right groin negative. Genitalia within normal limits. Abdomen is soft benign. Moderately sized incarcerated left inguinal hernia Assessment & Plan Assessment & Plan (1) Incarcerated left inguinal hernia: Code(s): K40.30 - Unilateral inguinal hernia, with obstruction, without gangrene, not specified as recurrent Plan Risks, benefits, alternatives of open left inguinal hernia repair with mesh were reviewed with the patient and included but not limited to bleeding, infection, recurrence, numbness, pain, scarring the patient was to proceed. All questions answered. Arrangements were made for this. Coding Level of Care Code New Pt Level 5 (66220) Diagnoses Incarcerated left inguinal hernia K40.30
[2023-05-20 14:21] VITALS: BP 120/80; PULSE 80; BMI 23.3
== END 2023-05-20 14:33 | disposition home or self-care (01) ==
PROVIDERS: Visit Provider Surgery
DX: K40.30 Unilateral inguinal hernia, with obstruction, without gangrene, not specified as recurrent (principal)
CPT/HCPCS: 99204

== ENCOUNTER → 2023-05-20 14:10 | Outpatient (BNVA) | payer OTHER, SELFPAY | PROVIDERS: Visit Provider Surgery ==

== ENCOUNTER 2023-06-06 09:57 | Day surgery (SDC) | payer OTHER, SELFPAY ==
[2023-06-04 08:08] VITALS: BMI 23.2
--- NOTE | 2023-06-05 09:28 | HO.ANESPROP2 ---
Documented by User: Josette Hernandez NP 06/05/23 09:29 HPI - Anesthesia Eval Consult details Narrative: 42yo M for Left Open Repair Incarcerated Inguinal Hernia with Mesh PMFSH Active Problems Active Problems: All Active Problems (Updated 05/16/23 @ 00:01 by Hans Pantoja) Incarcerated left inguinal hernia (Acute) Abdominal pain (Acute) Diverticulitis (Acute) Family History Family History Mother Colon cancer Father Prostate CA Surgical History Surgical History Hx of colonoscopy H/O vasectomy Hx laparoscopic cholecystectomy Social History Social History Household Members: Family Housing: House Do you presently have visiting nurse or other home services: No Comment: COUNTS CORRECT Patient Tobacco Use Status: Current someday Tobacco user Tobacco use type: Cigarette Cigarettes Per Day: 1 Years Smoked: 15 e-Cigarette/Vaping Use: Currently Using Second Hand Smoke Exposure: No Substance Use Type: Marijuana service: No Current occupational status: employed Meds Allergies Allergy/AdvReac Type Severity Reaction Status Date / Time No Known Allergies Allergy Verified 06/06/23 10:49 Home Medications Medication Instructions Recorded Confirmed Last Taken Type inulin 2 gram chewable tablet 4 g PO DAILY 02/21/22 06/06/23 02/20/22 History (Fiber Gummies) Exam Height,Weight and Vital Signs: Height 6 ft Weight 77.564 kg Pertinent Lab Results Pertinent Lab Results: Laboratory Tests 05/15/23 05/15/23 05/15/23 08:39 08:39 08:40 WBC 7.4 Hgb 14.6 Hct 43.2 Plt Count 357 Sodium 140 Potassium 3.6 Chloride 108 Carbon Dioxide BUN 14 Creatinine 05/15/23 08:40 WBC Hgb Hct Plt Count Sodium Potassium Chloride Carbon Dioxide 22 BUN Creatinine 0.99 Assessment and Plan Assessment Anesthesia Assessment: Chart Reviewed Documented by User: Beth De León MD 06/06/23 12:55 PMFSH Active Problems Active Problems: All Active Problems (Updated 06/06/23 @ 11:30 by MD Glynn) Incarcerated left inguinal hernia (Acute) Abdominal pain (Acute) Diverticulitis (Acute) Family History Family History Mother Colon cancer Father Prostate CA Family history of problems with anesthesia: No Surgical History Surgical History Hx of colonoscopy H/O vasectomy Hx laparoscopic cholecystectomy History of Problems with Anesthesia: No Social History Social History Household Members: Family Housing: House Do you presently have visiting nurse or other home services: No Comment: COUNTS CORRECT Patient Tobacco Use Status: Current someday Tobacco user Tobacco use type: Cigarette Cigarettes Per Day: 1 Years Smoked: 15 e-Cigarette/Vaping Use: Currently Using Second Hand Smoke Exposure: No Substance Use Type: Marijuana service: No Current occupational status: employed Meds Allergies Allergy/AdvReac Type Severity Reaction Status Date / Time No Known Allergies Allergy Verified 06/06/23 10:49 Home Medications Medication Instructions Recorded Confirmed Last Taken Type inulin 2 gram chewable tablet 4 g PO DAILY 02/21/22 06/06/23 02/20/22 History (Fiber Gummies) Exam Height,Weight and Vital Signs: Height 6 ft Weight 77.564 kg Vital Signs Temp Pulse Resp BP Pulse Ox O2 Del Method 06/06/23 11:17 98.4 F 82 16 142/98 H 100 Room Air Airway Mallampati Class: II TM Dist: >3cm Neck ROM: Full Loose/Missing/Broken Teeth: Yes (Some missing. Denies broken or loose teeth) Heart: RRR Lungs: CTAB Assessment and Plan Assessment Anesthesia Assessment: Anesthesia Plan Discussed and Chart Reviewed Final Anesthetic Review Family History of Problems with Anesthesia: No History of Problems with Anesthesia: No NPO: Yes ASA Class: II Final Preanesthetic Review: No Changes in Pt Med Stat, Meds/Allgs Chart Reviewed, Consent Obtained/Reviewed and Anes Risks/Benef Reviewed Patient Risk: Low Procedure Risk: Low Assessment/Block/Sedation in SS: Assess/Block/Sedation-SS Anesthetic Plan Anesthetic Plan: TIVA Disposition: Standard PACU
--- NOTE | 2023-06-05 09:30 | MHC.SHP ---
Pre-Procedural Eval Section A - 24 Hr Update-Section A only Date of Service: 06/05/23 The patient is an INPATIENT: No Changes since office visit: No Cold of Flu in the past 2 weeks, No New Medical Problems, No Changes in Medication and No Patient answered all questions The patient has been examined within 24 hours of the surgical procedure. The History & Physical has been completed within 30 days and I have reviewed it.: Yes Section B - Complete if H&P > 30 days Chief Complaint: Unilateral inguinal hernia, with obstruction, with Allergies: Allergies Allergy/AdvReac Type Severity Reaction Status Date / Time No Known Allergies Allergy Verified 05/20/23 14:19 Plan I have reviewed the history and physical and performed a pertinent physical examination on my patient. No changes have occurred unless specified. Time Spent With Patient Time: Total time managing care of this patient today ____ minutes.
[2023-06-06 11:01] VITALS: BMI 22.6
[2023-06-06 11:17] VITALS: BP 142/98; PULSE 82; RESP 16; TEMP 36.9; O2SAT 100
[2023-06-06] MEDS: Lactated Ringers 1,000 ML 100 ML IVCONT (11:43)
--- NOTE | 2023-06-06 13:07 | W.PM.OPN ---
Operative Note Operative Note Date of Service: 06/06/23 Narrative: Preoperative diagnosis: [] Left inguinal hernia Postop diagnosis: Same Procedure [] open left inguinal herniorrhaphy with Bard mesh Surgeon: [] George Investor Relations Associate: [] Criselda Type of Anesthesia: MAC Indication for surgery: [] Large indirect inguinal hernia. No direct hernia demonstrated. Findings: [] Patient brought to the operating room, placed on operative table in supine position, after an adequate level of MAC anesthesia with was induced, the patient underwent ilioinguinal block as well as wound infiltration after the left groin was prepped and draped in usual sterile fashion 0.5% Marcaine/1% lidocaine. Using a small left earl inguinal incision, this carried down through skin, subcutaneous tissue, and Danya's fascia. External oblique fibers were opened in the direction with care to isolate and preserve the ilioinguinal nerve throughout the procedure. Spermatic cord was identified and retracted from the field. No direct hernia was demonstrated. A very large indirect hernia sac was from the spermatic cord and reduced. A Bard plug was placed in the indirect defect and sutured inferiorly to the inguinal ligament, and superiorly to the transversalis fascia using interrupted 0 Ethibond suture. At completion of procedure, mesh was in good position also cover the entire inguinal floor. Wounds irrigated, secured hemostasis, and closed using the following; external oblique fascia was closed using running 2-0 Vicryl suture. Danya's fascia was closed using interrupted 3-0 Vicryl sutures. Interrupted inverted deep dermal 3-0 Vicryl sutures followed by running subcuticular 4-0 Vicryl sutures were placed. Steri-Strips and sterile dressings were applied. Wound was once again infiltrated 0.5% Marcaine/1% lidocaine at completion. Sponge, needle, and instrument counts were reported correct. Patient tolerated the procedure well and emerged from anesthesia stable condition. Ipsilateral testicle was intrascrotal at completion. EBL minimal
[2023-06-06 13:08] VITALS: BP 102/65; PULSE 80; RESP 16; TEMP 36.1; O2SAT 97
[2023-06-06 13:23] VITALS: BP 121/85; PULSE 68; RESP 16; O2SAT 97
[2023-06-06 13:38] VITALS: BP 141/96; PULSE 68; RESP 16; O2SAT 96
[2023-06-06 13:53] VITALS: BP 146/98; PULSE 68; RESP 16; O2SAT 98
[2023-06-06 14:05] VITALS: BP 148/103; PULSE 64; RESP 16; TEMP 36.1; O2SAT 98
== END 2023-06-06 15:38 | disposition home or self-care (01) ==
PROVIDERS: Visit Provider Surgery
PROC: (CPT 49505; principal; 2023-06-06 12:20)
DX: K40.90 Unilateral inguinal hernia, without obstruction or gangrene, not specified as recurrent (principal); Z98.52 Vasectomy status; Z90.49 Acquired absence of other specified parts of digestive tract; F17.210 Nicotine dependence, cigarettes, uncomplicated
CPT/HCPCS: 49505; C1781; J0131; J0665; J0690; J1596; J2250; J2405; J2704; J3010

== ENCOUNTER → 2023-06-06 09:57 | Outpatient (BNV) | payer OTHER, SELFPAY | PROVIDERS: Visit Provider Surgery | DX: K40.30 Unilateral inguinal hernia, with obstruction, without gangrene, not specified as recurrent (principal) | CPT/HCPCS: 49507 ==

== ENCOUNTER 2023-06-17 11:39 | Outpatient (AMB) | payer OTHER, SELFPAY ==
[2023-06-17 11:42] VITALS: BP 138/97; PULSE 109
--- NOTE | 2023-06-17 11:42 | MHC.OFFVIS ---
Intake Vital Signs 06/17/23 11:42 Weight 170 lb BP 138/97 H Blood Pressure Location Rt brachial Position Sitting Pulse 109 H Intake Visit Reasons: S/p repair left inguinal hernia Intake Note: Patient here s/p LIH repair on 06-06-23. Patient c/o: mild tenderness. Incisions healing well. Denies oozing, itch. Still taking rx pain meds at night. 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 He is doing quite well. He has tolerating a diet and regular bowel habits. Increasing his activity level. He has minimal incisional discomfort. PFSH Surgical History Incarcerated left inguinal hernia (06/06/23) Hx of colonoscopy H/O vasectomy Hx laparoscopic cholecystectomy Family History Mother Colon cancer Father Prostate CA Social History Household Members: Family Housing: House Do you presently have visiting nurse or other home services: No Comment: COUNTS CORRECT Patient Tobacco Use Status: Current someday Tobacco user Tobacco use type: Cigarette Cigarettes Per Day: 1 Years Smoked: 15 e-Cigarette/Vaping Use: Currently Using Second Hand Smoke Exposure: No Substance Use Type: Marijuana service: No Current occupational status: employed Physical Exam Vital Signs: Last Vital Signs Pulse 109 H 06/17/23 11:42 BP 138/97 H 06/17/23 11:42 GI Other: Abdomen soft. Wound clean dry and intact healing very well. Assessment & Plan Assessment & Plan (1) Status post inguinal hernia repair: Code(s): Z98.890 - Other specified postprocedural states; Z87.19 - Personal history of other diseases of the digestive system Plan Patient has been given local instructions, a note for work, and will follow-up p.r.n.. All questions answered. Coding Level of Care Code Global (14749) Diagnoses Status post inguinal hernia repair Z98.890; Z87.19
== END 2023-06-17 11:46 | disposition home or self-care (01) ==
PROVIDERS: Visit Provider Surgery
DX: Z98.890 Other specified postprocedural states (principal); Z87.19 Personal history of other diseases of the digestive system
CPT/HCPCS: 99024

== ENCOUNTER → 2023-06-17 11:39 | Outpatient (BNVA) | payer OTHER, SELFPAY | PROVIDERS: Visit Provider Surgery ==

== ENCOUNTER 2023-07-02 11:11 | Outpatient (AMB) | payer OTHER, SELFPAY ==
--- NOTE | 2023-07-02 11:15 | MHC.OFFVIS ---
Intake Vital Signs 07/02/23 11:16 Weight 168 lb BP 131/91 H Blood Pressure Location Rt brachial Position Sitting Pulse 98 Intake Visit Reasons: oozing from incision, fowl smell Intake Note: Patient c/o: oozing from incision, fowl smell. First noticed ? LIH excision 06-06-23. 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 Otherwise she is doing well. Tolerating a diet. Having regular bowel habits. Increasing his activity level. He is to start work next week. PFSH Surgical History Incarcerated left inguinal hernia (06/06/23) Hx of colonoscopy H/O vasectomy Hx laparoscopic cholecystectomy Family History Mother Colon cancer Father Prostate CA Social History Household Members: Family Housing: House Do you presently have visiting nurse or other home services: No Comment: COUNTS CORRECT Patient Tobacco Use Status: Current someday Tobacco user Tobacco use type: Cigarette Cigarettes Per Day: 1 Years Smoked: 15 e-Cigarette/Vaping Use: Currently Using Second Hand Smoke Exposure: No Substance Use Type: Marijuana service: No Current occupational status: employed Physical Exam Vital Signs: Last Vital Signs Pulse 98 07/02/23 11:16 BP 131/91 H 07/02/23 11:16 GI Other: Patient is extruding suture from the lateral aspect of his incision. Otherwise wound is clean dry and intact and healing well. Wound was clean, and bacitracin applied. Assessment & Plan Assessment & Plan (1) Postoperative stitch abscess: Code(s): T81.41XA - Infection following a procedure, superficial incisional surgical site, initial encounter (2) Status post inguinal hernia repair: Code(s): Z98.890 - Other specified postprocedural states; Z87.19 - Personal history of other diseases of the digestive system Plan Patient has been given local instructions, including bacitracin each day until wound heals with a dressing change and will follow-up p.r.n.. All questions answered Coding Level of Care Code Global (15382) Diagnoses Postoperative stitch abscess T81.41XA Status post inguinal hernia repair Z98.890; Z87.19
[2023-07-02 11:16] VITALS: BP 131/91; PULSE 98
== END 2023-07-02 11:16 | disposition home or self-care (01) ==
PROVIDERS: Visit Provider Surgery
DX: T81.41XA Infection following a procedure, superficial incisional surgical site, initial encounter (principal); Z98.890 Other specified postprocedural states; Z87.19 Personal history of other diseases of the digestive system
CPT/HCPCS: 99024

== ENCOUNTER → 2023-07-02 11:11 | Outpatient (BNVA) | payer OTHER, SELFPAY | PROVIDERS: Visit Provider Surgery ==